=== PATIENT | female | born 1935 | race Caucasian/White ===

== ENCOUNTER 2025-04-25 00:28 | Emergency (ER) | payer MEDICARE, MEDICAID ==
[~2025-04-25] VITALS: Ht 162.6 cm; Wt 90.9 kg
[2025-04-25 00:38] VITALS: TEMP 97.8
--- NOTE | 2025-04-25 00:56 | Physician Documentation ---
History of Present Illness ~ Chief Complaint: Mechanical Fall Stated Complaint: FALL Time Seen by MD: 00:55 HPI Patient presents to the emergency room status post fall. She is at [facility] when her walker kicked out from underneath her causing her to fall backwards and hitting her head. She is not on blood thinners. No nausea. She is on comfort care complaining of neck pain. Medication Reconciliation Allergies: Coded Allergies: Penicillins (Verified Allergy, Unknown, 04/25/25) iodine (Verified Allergy, Unknown, 04/25/25) meperidine (Verified Allergy, Unknown, 04/25/25) Review of Systems ROS All review of systems negative except as per HPI Physical Exam Vital Signs: Temperature: 97.8, Source: Oral, Heart Rate: 84, Respiratory Rate: 15, BP: 113/62, Pulse Oximetry: 97, Weight: 90.910 Oxygen Flow Rate: 0 Physical Exam General: Patient is awake, alert, cooperative in no acute distress Head: Normocephalic and atraumatic. Eyes: Conjunctival normal. EOMI. PERRL. ENT: Mucous membranes moist. Neck: Supple, trachea is midline. In C-collar Chest: Clear to auscultation bilaterally without rales, rhonchi, or wheezes. There is no accessory muscle use or retractions. Cardiac: RRR without murmurs, gallops, or rubs. Progress Results/Orders Results/Orders Orders - CHEIKH SHAVER MD Ct Cervical Spine (04/25/25 00:55) Ct Head (04/25/25 00:55) Completed Orders - CHEIKH SHAVER MD Ct Cervical Spine (04/25/25 00:55) Ct Head (04/25/25 00:55) Acetaminophen 325mg Tablet (Tylenol Tabl (04/25/25 01:00) Medications Received in ER Medications (Trade) Dose Ordered Sig/Maria Dolores Route PRN Reason Start Time Stop Time Status Last Admin Dose Admin (Tylenol tablet) 650 mg ONCE ONCE PO 04/25/25 01:00 04/25/25 01:01 DC 04/25/25 01:39 650 MG Vital Signs 04/25/25 04/25/25 00:38 01:59 Temp 97.8 Pulse 84 75 Resp 15 16 B/P (MAP) 113/62 113/64 (80) Pulse Ox 97 93 O2 Flow Rate 0 0 Medical Decision Making Additional information obtaine: old records Findings Patient presents to the emergency room status post fall. She is comfort care therefore labs are not ordered however she has complaint of neck discomfort therefore imaging indicated which was reassuring. Differential Dx:Considerations: Include: Closed head injury, Cardiac injury, Fracture(s), Intraabdominal injury, Pneumothorax, Cerebral contusion, Pulmonary contusion, Spine injury, Tracheal injury, Urological injury, Vascular injury, Abrasion(s), Contusion(s), Foreign body(s), Hematoma(s), Laceration(s), Encephalopathy, Other Departure Disposition: HOME / SELF CARE / HOMELESS Impression: Primary Impression: Fall Condition: Stable Discharge Instructions: Fall Prevention in the Home, Adult, [id number] Referrals: NO PRIMARY CARE PROVIDER (PCP) Signature Scribe Signature: No scribe Attestation: The note accurately reflects work and decisions made by me.Cheikh Shaver MD 04/25/25 02:13 CHEIKH SHAVER MD Apr 25, 2025 00:56
--- NOTE | 2025-04-25 01:44 | RADIOLOGY REPORT ---
EXAM: CT CT HEAD INDICATION: fall w pain TECHNIQUE: CT of the head without intravenous contrast. Radiation Dose : 1. Head: CT Dose: CTDI volume is 57.05 mGy. Dose-length product is 1019.39 mGy*cm The dose indicators for CT are the volume Computed Tomography (CT) Dose Index (CTDIvol) and the Dose Length Product (DLP), and are measured in units of mGy and mGy-cm, respectively. These indicators are not patient dose, but values generated from the CT scanner acquisition factors. The report includes radiation exposure data for exposures received during this examination. COMPARISON: None FINDINGS: There is no evidence of acute intracranial hemorrhage, extra-axial collection, mass effect, midline shift, herniation or hydrocephalus. Increased prominence of the ventricles, sulci and cisterns consistent with sequelae of atrophic cortical volume loss. The german-white differentiation is intact. Moderate diffuse confluent periventricular and subcortical white matter hypoattenuation is nonspecific but may be related to small vessel ischemic disease. Pansinusitis. The mastoid air cells are clear. The surrounding soft tissues and osseous structures are unremarkable. IMPRESSION: 1. No acute intracranial abnormality. 2. Chronic sequelae of microangiopathy and atrophic cortical volume loss. Radiation optimization: All CT scans at this facility use at least one of these dose optimization techniques: automated exposure control mA and/or kV adjustment per patient size (includes targeted exams where dose is matched to clinical indication) or iterative reconstruction.
--- NOTE | 2025-04-25 01:46 | RADIOLOGY REPORT ---
EXAM: CT CT CERVICAL SPINE HISTORY: fall w pain COMPARISON: None CTDIvol 24 mGy, DLP 632 mGy*cm. TECHNIQUE: Multiple axial CT images of the spine were obtained using bone algorithm. Axial and coronal reformatting was done. Bone and soft tissue windows were reviewed. FINDINGS: No evidence of vertebral fracture or compresison deformity. Normal alignment of the craniocervical junction with degenerative changes present. Straightening of normal lordotic curvature without traumatic listhesis. 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 No acute finding of the neck soft tissues are upper chest. IMPRESSION: 1. No acute fracture of the cervical spine.
[2025-04-25 01:59] VITALS: BP 113/64; PULSE 75; RESP 16; O2SAT 93
== END 2025-04-25 02:50 | disposition home or self-care (01) ==
LOC: ER 00:29
DX: M54.2 Cervicalgia (principal); Z88.0 Allergy status to penicillin; Z88.5 Allergy status to narcotic agent; Z88.8 Allergy status to other drugs, medicaments and biological substances; W19.XXXA Unspecified fall, initial encounter; Y93.89 Activity, other specified; Y92.89 Other specified places as the place of occurrence of the external cause; Y99.8 Other external cause status
CPT/HCPCS: 70450; 72125; 99284